=== PATIENT | female | born 1970 | race Caucasian/White ===

== ENCOUNTER 2024-03-06 03:51 | Emergency (ER) | payer MEDICAID ==
[~2024-03-06] VITALS: Ht 172.7 cm; Wt 115.9 kg
[~2024-03-06 03:51] MED LIST: ATEN-169 PO; DEXL60CA3 PO; NORCO10T PO; ROPI5TAB PO
[2024-03-06 03:52] VITALS: TEMP 98.9
[2024-03-06] MEDS: piperacillin/tazo 3.375gm/50ml 50 ML IV ONE (05:06)
[2024-03-06] MEDS: normal saline 1000ML IV soln IV ONE (05:06)
[2024-03-06] MEDS: morphine 4 MG/ML inj SYRINge IV ONE (05:07)
[2024-03-06] MEDS: ondansetron/PF 4mg/2ml inj IV ONE (05:07)
[2024-03-06 05:48] LABS: BASOPHILS % (AUTO) 0.6 % (0-1); EOSINOPHILS # (AUTO) 0.2 X10'3 (0-0.9); EOSINOPHILS % (AUTO) 2.9 % (0-6); HEMATOCRIT 47.8 % (35.0-45.0); HEMOGLOBIN 16.3 g/dl (12.0-16.0); LYMPHOCYTES # (AUTO) 1.9 X10'3 (1.1-4.8); LYMPHOCYTES % (AUTO) 23.4 % (21-51); MEAN CORPUSCULAR HEMOGLOBIN 30.1 PG (27.0-31.0); MEAN CORPUSCULAR HGB CONC 34.1 g/dL (33.0-36.5); MEAN CORPUSCULAR VOLUME 88.4 FL (78-98); MEAN PLATELET VOLUME 9.6 FL (7.4-10.4); MONOCYTES # (AUTO) 0.7 X10'3 (0-0.9); MONOCYTES % (AUTO) 8.6 % (2-12); NEUTROPHILS # (AUTO) 5.3 X10'3 (1.8-7.7); NEUTROPHILS % (AUTO) 64.5 % (42-75); PLATELET COUNT 187 X10'3 (140-440); RED BLOOD COUNT 5.41 X10'6 (4.20-5.60); RED CELL DISTRIBUTION WIDTH 14.1 % (11.5-14.5); WHITE BLOOD COUNT 8.2 X10'3 (4.5-11.0)
[2024-03-06] MEDS: vancomycin/NS 1 GM ADD-VANTAGE 250 ML IV ONE (06:06)
[2024-03-06 06:27] LABS: ANION GAP 8 (8-16); BLOOD UREA NITROGEN 12 MG/DL (7-18); BUN/CREATININE RATIO 14.3 (10.0-20.0); CALCIUM 9.1 MG/DL (8.5-10.1); CHLORIDE 103 MMOL/L (99-107); CREATININE 0.84 MG/DL (0.40-0.90); MAGNESIUM 1.7 MG/DL (1.5-2.4); POTASSIUM 3.6 MMOL/L (3.5-5.1); SODIUM 138 MMOL/L (135-145); TOTAL CARBON DIOXIDE 26.8 MMOL/L (24-32); eCRCL 78 ML/MIN; eGFR 71 ML/MIN
[2024-03-06 06:28] LABS: GLUCOSE 431 MG/DL (70-104)
[2024-03-06] MEDS: insulin regular, human 10 units/0.1 ml syringe SQ ONE (07:17)
[2024-03-06] MEDS: normal saline 1000ml 1,000 ML IV ONE (07:23)
[2024-03-06 07:54] LABS: BILIRUBIN,URINE NEGATIVE (Neg); CLARITY,URINE CLEAR (Clear); COLOR,URINE STRAW (Yellow); GLUCOSE, URINE >=1000 mg/dl (Neg); KETONES,URINE NEGATIVE (Neg); LEUKOCYTE ESTERASE ,URINE NEGATIVE (Neg); NITRITES, URINE NEGATIVE (Neg); OCCULT BLOOD,URINE NEGATIVE (Neg); PROTEIN,URINE NEGATIVE (Neg); UROBILINOGEN,URINE 0.2 E.U/dL (0.2-1.0)
[2024-03-06 07:57] LABS: UA COLLECTION TYPE VOIDED
[2024-03-06 08:01] LABS: RBC,URINE NONE SEEN /HPF (0-2)
[2024-03-06 08:02] LABS: BACTERIA,URINE FEW /HPF (Neg); MUCUS STRANDS NONE SEEN /LPF (Neg); SQUAMOUS EPITHELIAL CELL,UR MANY /LPF (FEW); YEAST MODERATE /HPF (NEGATIVE)
[2024-03-06 09:00] VITALS: BP 174/109; PULSE 87; RESP 16; O2SAT 95
[2024-03-06] MEDS ORDERED: SULF1TAB49 PO (09:37)
[2024-03-06] MEDS ORDERED: CEPH-585 PO (09:37)
== END 2024-03-06 09:30 | disposition home or self-care (01) ==
LOC: ER 03:52
DX: L03.311 Cellulitis of abdominal wall (principal); I10 Essential (primary) hypertension; F32.A Depression, unspecified; Z88.8 Allergy status to other drugs, medicaments and biological substances; Z79.2 Long term (current) use of antibiotics
CPT/HCPCS: 36415; 80048; 81001; 82948; 83605; 83735; 84145; 85025; 87040; 93005; 96361; 96365; 96372; 96375; 99285; J1815; J2270; J2543; J3370; J7030